=== PATIENT | male | born 1965 | race Caucasian/White ===

== ENCOUNTER 2021-11-09 07:37 | Day surgery (SDC) | payer MEDICAID ==
[~2021-11-09] VITALS: Ht 175.3 cm; Wt 80.3 kg
[2021-11-09] MEDS ORDERED: fentaNYL CITRATE/PF 100 MCG/2 ML AMP ONE (08:54)
[2021-11-09] MEDS ORDERED: MIDAZOLAM HCL 5 MG/5 ML VIAL ONE (08:55)
[2021-11-09] MEDS ORDERED: DIPHENHYDRAMINE INJ 50 MG/ML VIAL ONE (09:10)
[2021-11-09 15:59] VITALS: BP_SYST 129
== END 2021-11-09 11:03 | disposition home or self-care (01) ==
LOC: SDS 07:37 → SMU 07:38 → SDS 11:03
PROVIDERS: ATTEND Internal Medicine
DX: R10.30 Lower abdominal pain, unspecified (principal); K63.5 Polyp of colon; K57.30 Diverticulosis of large intestine without perforation or abscess without bleeding; K64.8 Other hemorrhoids; K76.0 Fatty (change of) liver, not elsewhere classified; E78.00 Pure hypercholesterolemia, unspecified; Z87.891 Personal history of nicotine dependence; Z79.899 Other long term (current) drug therapy; Z20.822 Contact with and (suspected) exposure to COVID-19
CPT/HCPCS: 36415 ×2; 45380; 87426 ×2; 88305; 99152; G0378; J1200; J2250; J3010